=== PATIENT | male | born 1975 | race Two or more races ===

== ENCOUNTER 2024-10-08 22:12 | Emergency (ER) | payer OTHER ==
[~2024-10-08] VITALS: Ht 188 cm; Wt 95.3 kg
[2024-10-08] MEDS ORDERED: HYZAAR 100-251 EACH (22:15)
[2024-10-09 00:39] LABS: HEMATOCRIT 44.1 % (39.0-48.0); MEAN CORPUSCULAR HEMOGLOBIN 29.6 pg (27.00-32.0); PLATELET COUNT 253 K/uL (150-450); RED BLOOD COUNT 5.07 M/uL (4.00-6.00); RED CELL DISTRIBUTION WIDTH 14.2 % (11.5-14.5)
[2024-10-09 01:50] LABS: URINE BACTERIA 105.1 uL (0.0-1933); URINE EPITHELIAL CELLS 1.7 uL (0.0-38.8); URINE RBC 2.2 uL (0.0-20.8); URINE WBC 5.6 uL (0.0-23.2)
[2024-10-09 01:55] LABS: URINE APPEARANCE Clear; URINE BILIRRUBIN Negative (NEGATIVE); URINE BLOOD Negative; URINE COLOR Dark Yellow; URINE GLUCOSE Negative (NEGATIVE); URINE KETONE Negative (NEGATIVE); URINE LEUKOCYTE Negative; URINE NITRATE Negative; URINE PROTEIN Negative (NEGATIVE); URINE UROBILINOGEN 0.2 E.U./dl
[2024-10-09] MEDS ORDERED: DICLOFENAC SODI75 MG PO (02:13)
== END 2024-10-09 02:18 | disposition home or self-care (01) ==
LOC: ER 22:13
DX: N50.812 Left testicular pain (principal); I86.1 Scrotal varices; I10 Essential (primary) hypertension